=== PATIENT | male | born 2000 | race Two or more races ===

== ENCOUNTER 2021-03-25 16:19 | Emergency (ER) | payer SELFPAY ==
[~2021-03-25] VITALS: Ht 167.6 cm; Wt 82.6 kg
[2021-03-25 16:39] VITALS: BP 130/90
[2021-03-25] MEDS ORDERED: ACETAMINOPHEN 500 MG TABLET PO ONE (16:45)
--- NOTE | 2021-03-25 16:45 | PHYS DOC ---
General Adult EDM: Chief Complaint: COUGH HPI: HPI: Patient is a 20 year old male who presents with cough, sore throat for the last day. His niece is positive for COVID and was around her 2 days ago. He does have a fever in the ED. He is not vaccinated for COVID. Denies any other medical history. Rates his pain at a 7 out of 10. Denies chest pain, shortness of air, headache, dizziness, abdominal pain, nausea, vomiting, diarrhea. Review of Systems: Review of Systems: Constitutional: + fever or +chills. [] Eyes: Denies change in visual acuity. [] HENT: Denies nasal congestion or +sore throat. [] Respiratory: +cough or denies shortness of breath. [] Cardiovascular: Denies chest pain or edema. [] GI: Denies abdominal pain, nausea, vomiting, bloody stools or diarrhea. [] : Denies dysuria. [] Musculoskeletal: Denies back pain or joint pain. [] Integument: Denies rash. [] Neurologic: Denies headache, focal weakness or sensory changes. [] Endocrine: Denies polyuria or polydipsia. [] Lymphatic: Denies swollen glands. [] Psychiatric: Denies depression or anxiety. [] Heart Score: C/O Chest Pain: No Physical Exam: PE: Constitutional: Well developed, well nourished, no acute distress, non-toxic appearance. [] HENT: Normocephalic, atraumatic, bilateral external ears normal, oropharynx moist, no oral exudates, nose normal. [] Eyes: PERRLA, EOMI, conjunctiva normal, no discharge. [] Neck: Normal range of motion, no tenderness, supple, no stridor. [] Cardiovascular:Heart rate regular rhythm, no murmur [] Lungs & Thorax: Bilateral breath sounds clear to auscultation [] Abdomen: Bowel sounds normal, soft, no tenderness, no masses, no pulsatile masses. [] Skin: Warm, dry, no erythema, no rash. [] Back: No tenderness, no CVA tenderness. [] Extremities: No tenderness, no cyanosis, no clubbing, ROM intact, no edema. [] Neurologic: Alert and oriented X 3, normal motor function, normal sensory function, no focal deficits noted. [] Psychologic: Affect normal, judgement normal, mood normal. [] Normal Physical Exam EKG: EKG: [] Radiology/Procedures: Radiology/Procedures: [] Course & Med Decision Making: Course & Med Decision Making Pertinent Labs and Imaging studies reviewed. (See chart for details) COVID-19 CRITERIA: The patient was evaluated during the global COVID-19 pandemic, and that diagnosis was suspected/considered upon their initial presentation. Their evaluation, treatment and testing was consistent with current guidelines for patients who present with complaints or symptoms that may be related to COVID-19. See HPI. Alert and oriented x4. Ambulatory with a steady gait. Speaks in full clear sentences. Skin pink warm and dry. Lungs are clear to auscultation all lobes. Slightly febrile. Patient is given Tylenol in the ED. Abdomen soft and nontender. Throat is pink without exudates or swelling. No rashes. Patient is not hypoxic. No respiratory distress. COVID-positive. Rapid strep negative. [] Dragon Disclaimer: Dragon Disclaimer: This electronic medical record was generated, in whole or in part, using a voice recognition dictation system. COVID-19 Patient Risks: Age 65 or older: No Sign of co-morbidity: No Exp to person + for COVID: Yes Exp to PUI: Yes Travel from affected area: No Lower respiratory symptoms: Yes Fever: Yes Other: Yes (sore throat) PPE Use: Full PPE with N95 mask or PAPR: Yes Departure Departure Impression: Primary Impression: COVID-19 Disposition: 01 HOME / SELF CARE / HOMELESS Condition: STABLE Patient Instructions: Cough, Adult, Fever, Adult Additional Instructions: Quarantine. Drink plenty of fluids to stay hydrated. Take Tylenol and ibuprofen alternating to keep down fever and to help with pain. If you begin having severe chest pain or shortness of breath return to the emergency room. ELOY TOBAR APRN Mar 25, 2021 16:45
--- NOTE | 2021-03-25 17:53 | RAD ---
Chest portable at 1720: Reason for examination: Cough and shortness of breath. The heart size is normal. Mediastinum is unremarkable. Lung lundy are clear. No acute bony abnormali ties are seen. Impression: No acute cardiopulmonary disease. Electronically signed by: Lynnette Nevarez MD (03/25/2021 5:51 PM) DARYL
== END 2021-03-25 17:29 | disposition home or self-care (01) ==
LOC: ER 16:19
DX: U07.1 COVID-19 (principal)
CPT/HCPCS: 71045; 87070; 87426; 87880; 99284